=== PATIENT | male | born 1945 | race Caucasian/White ===

== ENCOUNTER → 2022-11-03 | Outpatient (REF) | payer BC | LOC: M LAB REF 16:37 | PROVIDERS: ATTEND Internal Medicine | DX: M10.9 Gout, unspecified (principal) ==

== ENCOUNTER 2024-06-13 10:03 | Day surgery (SDC) | payer BC ==
[~2024-06-13] VITALS: Ht 190.5 cm; Wt 93.0 kg
[~2024-06-13 10:03] MED LIST: CENT1TAB PO; CINN500C15 PO; COQ150CH PO; D-50CAP PO; IRBE150T27 PO; PRESCAP PO; SIMV20TA22 PO; TRIA37.577 PO; TURM500C PO; VITA-243 PO; ZINC50TA4 PO
[2024-06-13] MEDS: NS 1,000 ML IV ONE (10:25)
[2024-06-13] MEDS ORDERED: propofoL 200 MG/20 ML VIAL As Ordered ONE (11:00)
[2024-06-13 11:20] VITALS: TEMP 99.6
[2024-06-13 11:42] VITALS: BP 125/75; O2SAT 97
== END 2024-06-13 11:54 | disposition home or self-care (01) ==
LOC: M OPP 10:03
PROVIDERS: ATTEND Internal Medicine Gastroenterology
DX: Z12.11 Encounter for screening for malignant neoplasm of colon (principal); Z80.0 Family history of malignant neoplasm of digestive organs; D12.6 Benign neoplasm of colon, unspecified; K64.0 First degree hemorrhoids; K57.30 Diverticulosis of large intestine without perforation or abscess without bleeding; Z79.02 Long term (current) use of antithrombotics/antiplatelets; Z79.82 Long term (current) use of aspirin; Z79.899 Other long term (current) drug therapy

== ENCOUNTER → 2025-09-24 | Outpatient (REF) | payer BC ==
[~2025-09-24] MED LIST changes: +ZINC50TA37 PO; -ZINC50TA4 PO
== END ==
LOC: M LAB REF 16:55
PROVIDERS: ATTEND Nurse Practitioner Family
DX: S41.101A Unspecified open wound of right upper arm, initial encounter (principal); X58.XXXA Exposure to other specified factors, initial encounter; Y99.9 Unspecified external cause status; Y92.9 Unspecified place or not applicable